=== PATIENT | male | born 1945 | race Caucasian/White ===

== ENCOUNTER 2017-11-23 15:03 | Emergency (ER) | payer MEDICARE ==
--- NOTE | 2017-11-23 16:11 | ER Document Report ---
ED Medical Screen (RME) - General Chief Complaint: Knee Pain Stated Complaint: LEFT FOOT PAIN Time Seen by Provider: 11/23/17 16:05 Mode of Arrival: Medic Information source: Patient, Relative Notes: This 72-year-old male patient with a history of hypertension, hyperlipidemia, diabetes and gout. He is on allopurinol for his gout, and takes metformin, metoprolol and pravastatin. He began having pain to the left lateral knee around Yariel time, continued to walk on it and changed how he walks to compensate for the discomfort. He subsequently developed a little pulling discomfort in his right anterior thigh, and is developed pain in both feet. He notices the pain in the feet primarily getting in and out of a car. Brief exam shows he is exquisitely tender over the fibular head and the ligaments around it and around the lateral knee. There is no effusion, there is no tenderness to palpate the joint space from the anterior lateral and medial approach. There is severe pain trying to extend the knee, but the pain is located on the external lateral aspect of the joint around the fibular head. There is no tenderness to palpate the MTP joints, the ankles, or the bones of the feet. I have greeted and performed a rapid initial assessment of this patient. A comprehensive ED assessment and evaluation of the patient, analysis of test results and completion of the medical decision making process will be conducted by additional ED providers. TRAVEL OUTSIDE OF THE [place] IN LAST 30 DAYS: No - Related Data Allergies/Adverse Reactions: No Known Allergies Allergy (Verified 08/23/12 11:45) Past Medical History - Past Medical History Cardiac Medical History: Reports: Hx Hypertension Denies: Hx Coronary Artery Disease, Hx Heart Attack Pulmonary Medical History: Denies: Hx Asthma, Hx Bronchitis, Hx COPD, Hx Pneumonia Neurological Medical History: Denies: Hx Cerebrovascular Accident, Hx Seizures Musculoskeltal Medical History: Denies Hx Arthritis Past Surgical History: Denies: Hx Pacemaker - Immunizations Hx Diphtheria, Pertussis, Tetanus Vaccination: Yes - pt states 8 years ago
[2017-11-23 16:27] LABS: ABSOLUTE BASOPHILS # (AUTO) 0.1 10^3/uL (0.0-0.2); ABSOLUTE LYMPHOCYTES (AUTO) 3.2 10^3/uL (0.5-4.7); ABSOLUTE MONOCYTES (AUTO) 1.6 10^3/uL (0.1-1.4); ABSOLUTE NEUT (AUTO) 9.9 10^3/uL (1.7-8.2); BASOPHILS % (AUTO) 0.4 % (0-2); EOSINOPHILS % (AUTO) 0.2 % (0-6); HEMATOCRIT 41.3 % (37.9-51.0); HEMOGLOBIN 14.2 g/dL (13.5-17.0); LYMPHOCYTES % (AUTO) 21.7 % (13-45); MEAN CORPUSCULAR HEMOGLOBIN 32.6 pg (27.0-33.4); MEAN CORPUSCULAR HGB CONC 34.4 g/dL (32.0-36.0); MEAN CORPUSCULAR VOLUME 95 fl (80-97); MONOCYTES % (AUTO) 10.5 % (3-13); PLATELET COUNT 280 10^3/uL (150-450); RED BLOOD COUNT 4.37 10^6/uL (4.35-5.55); RED CELL DISTRIBUTION WIDTH 13.8 % (11.5-14.0); SEGMENTED NEUTROPHILS % (AUTO) 67.2 % (42-78); TOTAL CELLS COUNTED % (AUTO) 100 %; WHITE BLOOD COUNT 14.8 10^3/uL (4.0-10.5)
[2017-11-23 16:43] LABS: ALANINE AMINOTRANSFERASE 20 U/L (21-72); ALBUMIN 4.5 g/dL (3.5-5.0); ALKALINE PHOSPHATASE 63 U/L (38-126); ANION GAP 14 (5-19); ASPARTATE AMINO TRANSFERASE 21 U/L (17-59); BILIRUBIN,DIRECT 0.3 mg/dL (0.0-0.4); BILIRUBIN,TOTAL 0.6 mg/dL (0.2-1.3); BLOOD UREA NITROGEN 31 mg/dL (7-20); CALCIUM 10.3 mg/dL (8.4-10.2); CARBON DIOXIDE 25 mmol/L (22-30); CHLORIDE 99 mmol/L (98-107); GLUCOSE 173 mg/dL (75-110); POTASSIUM 5.4 mmol/L (3.6-5.0); SODIUM 137.7 mmol/L (137-145); TOTAL PROTEIN 7.6 g/dL (6.3-8.2)
--- NOTE | 2017-11-23 17:16 | RADIOLOGY REPORT (SQ) ---
EXAM DESCRIPTION: KNEE LEFT 4 VIEW COMPLETED DATE/TIME: 11/23/2017 4:36 pm REASON FOR STUDY: Left lateral knee pain COMPARISON: None. NUMBER OF VIEWS: Four views. TECHNIQUE: AP, lateral, and both oblique radiographic images acquired of the left knee. LIMITATIONS: None. FINDINGS: MINERALIZATION: Normal. BONES: No acute fracture or dislocation. No worrisome bone lesions. JOINT: There is some minimal soft tissue fullness at the level of the suprapatellar pouch which I can not exclude is small joint effusion. SOFT TISSUES: No soft tissue swelling. No radio-opaque foreign body. OTHER: Minimal patellar spurring is identified. IMPRESSION: No acute fracture dislocation. Other findings as noted above TECHNICAL DOCUMENTATION: JOB ID: [id number] [employer]- All Rights Reserved
[2017-11-23 17:17] LABS: ERYTHROCYTE SEDIMENTATION RATE 58 mm/hr (0-20)
[2017-11-23] MEDS ORDERED: NORMAL SALINE 1000 ML 1,000 ML IV ONE (17:22)
[2017-11-23] MEDS ORDERED: ACETAMINOPHEN WITH CODEINE #3 TABLET PO ONE (17:43)
[2017-11-23] MEDS ORDERED: PREDNISONE 20 MG TABLET PO ONE (17:43)
--- NOTE | 2017-11-23 17:57 | ER Document Report ---
ED Extremity Problem, Lower - General Chief Complaint: Knee Pain Stated Complaint: LEFT FOOT PAIN Time Seen by Provider: 11/23/17 16:05 Mode of Arrival: Medic Notes: The patient is a 72-year-old male, past medical history gout, presents with 3 days of worsening left knee pain that feels similar to his prior episodes of gout. He is taking Motrin every 6 hours without much relief of his symptoms. He is also on allopurinol daily to help prevent gout. He had red meat over the past few days. Patient denies fevers, difficulty walking, other joint swelling , redness, injury, numbness, tingling, chest pain or shortness of breath. TRAVEL OUTSIDE OF THE [place] IN LAST 30 DAYS: No - Related Data Allergies/Adverse Reactions: No Known Allergies Allergy (Verified 08/23/12 11:45) Past Medical History - General Information source: Patient, Relative - Social History Smoking Status: Former Smoker Chew tobacco use (# tins/day): No Frequency of alcohol use: None Drug Abuse: None Family History: Reviewed & Not Pertinent Patient has suicidal ideation: No Patient has homicidal ideation: No - Past Medical History Cardiac Medical History: Reports: Hx Hypertension Denies: Hx Coronary Artery Disease, Hx Heart Attack Pulmonary Medical History: Denies: Hx Asthma, Hx Bronchitis, Hx COPD, Hx Pneumonia Neurological Medical History: Denies: Hx Cerebrovascular Accident, Hx Seizures Renal/ Medical History: Denies: Hx Peritoneal Dialysis Musculoskeltal Medical History: Denies Hx Arthritis Past Surgical History: Denies: Hx Pacemaker - Immunizations Hx Diphtheria, Pertussis, Tetanus Vaccination: Yes - pt states 8 years ago Review of Systems - Review of Systems Notes: REVIEW OF SYSTEMS: CONSTITUTIONAL: -fevers, -chills EENT: -eye pain, -difficulty swallowing, -nasal congestion CARDIOVASCULAR:-chest pain, -syncope. RESPIRATORY: -cough, -SOB GASTROINTESTINAL: -abdominal pain, - nausea, -vomiting, -diarrhea GENITOURINARY: -dysuria, -hematuria MUSCULOSKELETAL: +left knee pain, -back pain, -neck pain SKIN: -rash or skin lesions. HEMATOLOGIC: -easy bruising or bleeding. LYMPHATIC: -swollen, enlarged glands. NEUROLOGICAL: -altered mental status or loss of consciousness, -headache, - neurologic symptoms PSYCHIATRIC: -anxiety, -depression. ALL OTHER SYSTEMS REVIEWED AND NEGATIVE. Physical Exam - Vital signs Vitals: Temp Pulse Resp BP Pulse Ox 97.5 F 122 H 18 122/53 L 98 11/23/17 15:22 11/23/17 15:22 11/23/17 15:22 11/23/17 15:22 11/23/17 15:22 - Notes Notes: PHYSICAL EXAMINATION: GENERAL: Well-appearing, well-nourished and in no acute distress. HEAD: Atraumatic, normocephalic. EYES: Pupils equal round and reactive to light, extraocular movements intact, sclera anicteric, conjunctiva are normal. ENT: nares patent, oropharynx clear without exudates. Moist mucous membranes. NECK: Normal range of motion, supple without lymphadenopathy LUNGS: Breath sounds clear to auscultation bilaterally and equal. No wheezes rales or rhonchi. HEART: Tachycardia. ABDOMEN: Soft, nontender, normoactive bowel sounds. No guarding, no rebound. No masses appreciated. EXTREMITIES: Mild swelling and tenderness over lateral knee. No erythema or warmth. Able to fully flex and extend left knee, but is having some pain. NEUROLOGICAL: Cranial nerves grossly intact. Normal speech, normal gait. Normal sensory and motor exams. PSYCH: Normal mood, normal affect. SKIN: Warm, Dry, normal turgor, no rashes or lesions noted. Course - Re-evaluation Re-evalutation: Patient with mild swelling and pain of his left knee over the past 4 days. It is not red and he does not have fevers. He does have a leukocytosis and elevated inflammatory markers, but no clinical evidence of septic joint at this time without warmth or erythema. Blood work also shows a mild increase in his creatinine, which may be related to his NSAID use over the past few days. Provided 1 L of IV fluids and instructed him to not use any more anti- inflammatories. Patient also provided a dose of prednisone, Tylenol #3's and an RORY wrap with instructions to follow with his primary care physician to have his creatinine rechecked and orthopedic surgeon if his pain does not improve. Patient given very strict return precautions, especially about septic joint, and he understands. Family is at bedside and answered all questions. 11/23/17 21:34 Looking through his chart at vital signs that were placed after patient was discharged, patient was found to be febrile and tachycardic on discharge. I was not notified of the abnormal vitals prior to discharge. Called patient at number provided, but no answer and voicemail was not set up. Called son, who is also in the ER with the patient and left a message. He called back about 5 minutes later. Talked to him about concern for the possibility of a septic joint due to the fever when he was discharged, tachycardia, leukocytosis and instructed him to return to the ER as soon as he can for an arthrocentesis. He said he will try to bring the patient back tonight. He did say that his father is thick-headed and may not want to return tonight. Once again, I expressed my concern for septic joint and he says he will try to return tonight. - Vital Signs Vital signs: Temp Pulse Resp BP Pulse Ox 101.0 F H 119 H 18 111/73 93 11/23/17 18:44 11/23/17 18:44 11/23/17 18:44 11/23/17 18:44 11/23/17 18:44 - Laboratory Result Diagrams: 11/23/17 16:10 11/23/17 16:10 Laboratory results interpreted by me: 11/23/17 11/23/17 16:10 16:10 WBC 14.8 H Absolute Neutrophils 9.9 H Absolute Monocytes 1.6 H ESR 58 H Potassium 5.4 H BUN 31 H Creatinine 1.63 H Est GFR ( Amer) 50 L Est GFR (Non-Af Amer) 42 L Glucose 173 H Calcium 10.3 H ALT 20 L - Diagnostic Test Radiology reviewed: Image reviewed, Reports reviewed Radiology results interpreted by me: Left knee x-ray: There is some minimal soft tissue fullness at the level of the suprapatellar pouch which I cannot exclude is small joint effusion. No fractures. Discharge - Discharge Clinical Impression: Elevated serum creatinine Left knee pain Qualifiers: Chronicity: acute Qualified Code(s): M25.562 - Pain in left knee Condition: Stable Disposition: HOME, SELF-CARE Additional Instructions: Drink plenty of water and do not take any anti-inflammatories due to the increase in the blood test looking at your kidneys. Your creatinine is 1.6 today , so follow-up with your primary care physician next week to have this rechecked. Take the full course of steroids and Tylenol #3 for any severe pain. Use the Rory wrap to help with any swelling. If you notice any redness, fevers or any other concerns, return immediately to the emergency room. Follow- up with your orthopedic surgery this week for recheck of your symptoms. Gout You have been diagnosed as having gout. Gout is a problem caused by an excess of uric acid, a natural chemical found in the body. The cause of this disease is unknown. Gout arthritis occurs when crystals of uric acid form in the joints. The big toe is the most common joint involved, but any joint can become affected. Persons with gout may also form uric acid kidney stones, resulting in flank pain and blood in the urine. Nodules of uric acid may form under the skin. The first step of treatment is to decrease the inflammation in the joint with antiinflammatory medication. Medication to lower the uric acid level in the blood may then be prescribed. This medication should be taken regularly, as any sudden change in dosage may provoke an attack of gout. Some foods, such as red meat, can provoke an attack in some gout sufferers. Call the doctor if new symptoms arise, or if you do not improve. Gout Diet Changing your diet can decrease the uric acid in your blood. High levels of uric acid cause gouty arthritis and uric acid kidney stones. If you have gout , you should avoid meats that are high in purine. Meat products to avoid include liver, kidneys, and brains. In general, poultry is better than red meats. Seafoods to avoid include anchovies, sardines, león, mackerel, and scallops. In addition to limiting purine-rich foods, people with gout should limit protein intake to 10-15% of total calories. Carbohydrate intake should be around 50% of total daily calories. Limit fat intake to 30% of total daily calories. Cholesterol intake should be less than 300 mg/day. Maintain or achieve a healthy body weight. Weight loss should be gradual. Rapid weight loss can actually increase uric acid levels temporarily. Alcohol, especially beer, should be avoided. Get plenty of fluids. This dilutes urinary uric acid, and helps prevent uric acid kidney stones. Drink eight to twelve cups of water daily. Prescriptions: Acetaminophen with Codeine [Tylenol #3 Tablet] 1 each PO Q4HP PRN #14 tablet PRN Reason: Prednisone [Deltasone 20 mg Tablet] 3 tab PO DAILY 4 Days tablet Referrals: SUZETTE MACIEL MD [ACTIVE STAFF] - Follow up as needed
[2017-11-23 18:48] VITALS: BP 111/73
== END 2017-11-23 19:40 | disposition home or self-care (01) ==
LOC: ER 15:03
PROC: 0S9D3ZZ Drainage of Left Knee Joint, Percutaneous Approach (ICD-10-PCS; principal; 2017-11-23)
DX: M25.562 Pain in left knee (principal); M79.672 Pain in left foot; M10.9 Gout, unspecified; Z87.891 Personal history of nicotine dependence; D72.829 Elevated white blood cell count, unspecified
CPT/HCPCS: 99283; 99284; 96360; 36415; 87205; 87070; 85025; 85652; 89050; 89060; 87075; 80053; 73562; 20610; A9270 ×2; J7030; J7512

== ENCOUNTER 2017-11-23 22:37 | Emergency (ER) | payer MEDICARE ==
[2017-11-23] MEDS ORDERED: LIDOCAINE 1%/EPINEPHRINE INJ 20 ML VIAL INJ ONE (22:41)
--- NOTE | 2017-11-23 22:46 | ER Document Report ---
ED Extremity Problem, Lower - General Chief Complaint: Knee Pain Stated Complaint: ER CALLED PT TO COME BACK IN .DR JIMENEZ Time Seen by Provider: 11/23/17 22:40 Notes: 72-year-old male, past medical history gout, presents with 3 days of left knee pain. He was seen earlier today by myself and when discharge, he had a fever. I called the patient and told to come back for reassessment and arthrocentesis for concern about septic joint. TRAVEL OUTSIDE OF THE [place] IN LAST 30 DAYS: No - Related Data Allergies/Adverse Reactions: No Known Allergies Allergy (Verified 11/23/17 22:38) Past Medical History - General Information source: Patient - Social History Smoking Status: Unknown if Ever Smoked Family History: Reviewed & Not Pertinent Patient has suicidal ideation: No Patient has homicidal ideation: No - Past Medical History Cardiac Medical History: Reports: Hx Hypertension Denies: Hx Coronary Artery Disease, Hx Heart Attack Pulmonary Medical History: Denies: Hx Asthma, Hx Bronchitis, Hx COPD, Hx Pneumonia Neurological Medical History: Denies: Hx Cerebrovascular Accident, Hx Seizures Renal/ Medical History: Denies: Hx Peritoneal Dialysis Musculoskeltal Medical History: Denies Hx Arthritis Past Surgical History: Denies: Hx Pacemaker - Immunizations Hx Diphtheria, Pertussis, Tetanus Vaccination: Yes - pt states 8 years ago Review of Systems - Review of Systems Notes: REVIEW OF SYSTEMS: CONSTITUTIONAL: +fevers, -chills EENT: -eye pain, -difficulty swallowing, -nasal congestion CARDIOVASCULAR:-chest pain, -syncope. RESPIRATORY: -cough, -SOB GASTROINTESTINAL: -abdominal pain, - nausea, -vomiting, -diarrhea GENITOURINARY: -dysuria, -hematuria MUSCULOSKELETAL: +left knee pain, -back pain, -neck pain SKIN: -rash or skin lesions. HEMATOLOGIC: -easy bruising or bleeding. LYMPHATIC: -swollen, enlarged glands. NEUROLOGICAL: -altered mental status or loss of consciousness, -headache, - neurologic symptoms PSYCHIATRIC: -anxiety, -depression. ALL OTHER SYSTEMS REVIEWED AND NEGATIVE. Physical Exam - Vital signs Vitals: Temp Pulse Resp BP Pulse Ox 98.0 F 86 20 104/42 L 96 11/23/17 22:51 11/23/17 22:51 11/23/17 22:51 11/23/17 22:51 11/23/17 22:51 - Notes Notes: PHYSICAL EXAMINATION: GENERAL: Well-appearing, well-nourished and in no acute distress. HEAD: Atraumatic, normocephalic. EYES: Pupils equal round and reactive to light, extraocular movements intact, sclera anicteric, conjunctiva are normal. ENT: nares patent, oropharynx clear without exudates. Moist mucous membranes. NECK: Normal range of motion, supple without lymphadenopathy LUNGS: Breath sounds clear to auscultation bilaterally and equal. No wheezes rales or rhonchi. HEART: Regular rate and rhythm without murmurs ABDOMEN: Soft, nontender, normoactive bowel sounds. No guarding, no rebound. No masses appreciated. EXTREMITIES: Mild swelling of left knee, no erythema or warmth. Mild painful ROM. NEUROLOGICAL: Cranial nerves grossly intact. Normal speech, normal gait. Normal sensory and motor exams. PSYCH: Normal mood, normal affect. SKIN: Warm, Dry, normal turgor, no rashes or lesions noted. Course - Re-evaluation Re-evalutation: Please do not bill the patient for this visit as it was from an oversight during an earlier visit today. Patient called to return due to fever on discharge at last visit. No fever and he is not tachycardic anymore on repeat visit. Arthrocentesis of his left knee was performed with yellow fluid. Cell count showed a WBC of 15,000 and RBCs of 980, this is most consistent with an inflammatory arthritis and less likely a septic joint. He appears well. Instructed him to continue the prednisone due to inability to take anti-inflammatories with the slight increase in creatinine earlier today, Tylenol #3 for pain control and continue to drink plenty of fluids. He will f/u with Dr. Maciel this week for a recheck of his symptoms. Once again, gave him strict return precautions about septic joint and he understands. - Vital Signs Vital signs: Temp Pulse Resp BP Pulse Ox 98.0 F 86 20 104/42 L 96 11/23/17 22:51 11/23/17 22:51 11/23/17 22:51 11/23/17 22:51 11/23/17 22:51 Procedures - Joint Aspiration Left Knee Time completed: 23:11 Consent obtained: Yes Joint aspiration pre-procedure: Sterile PPE donned, Chloraprep applied, Sterile drapes applied Anesthetic type: 1% Lidocaine w/epi mL's of anesthetic: 10 Needle size: 18 Amount/type of drainage: Thick yellow drainage Number of attempts: 1 Complications: No Discharge - Discharge Clinical Impression: Left knee pain Qualifiers: Chronicity: acute Qualified Code(s): M25.562 - Pain in left knee Condition: Stable Disposition: HOME, SELF-CARE Additional Instructions: Your knee aspiration does not show any evidence of infection in the joint. As we discussed earlier, continue pain control with steroids and Tylenol with codeine and Rory wrap. Follow-up with the orthopedic surgeon this week for a recheck of your symptoms. Referrals: SUZETTE MACIEL MD [ACTIVE STAFF] - Follow up as needed
[2017-11-23] MEDS ORDERED: LIDOCAINE 2%/EPINEPHRINE INJ 20 ML VIAL INJ ONE (23:37)
[2017-11-23 23:55] LABS: MONOSODIUM URATE CRYSTALS EXTRACELLULAR
[2017-11-23 23:56] LABS: CALCIUM PYROPHOSPHATE CRYSTALS NONE OBSERVED
[2017-11-23 23:57] LABS: OTHER CRYSTALS NONE OBSERVED
[2017-11-24 00:23] LABS: FLUID COLOR YELLOW; FLUID SOURCE KNEE; FLUID TYPE SYNOVIAL
[2017-11-24 00:24] LABS: FLUID APPEARANCE TURBID; FLUID VISCOSITY MODERATELY VISCOUS
[2017-11-24 01:13] VITALS: BP 110/59
== END 2017-11-24 01:00 | disposition home or self-care (01) ==
LOC: ER 22:37
PROC: 0S9D3ZZ Drainage of Left Knee Joint, Percutaneous Approach (ICD-10-PCS; principal; 2017-11-23)
DX: M25.562 Pain in left knee (principal); R50.9 Fever, unspecified
CPT/HCPCS: 87070; 87075; 87205; 89050; 89060; 99283

== ENCOUNTER → 2018-07-25 | Outpatient (CLI) | payer MEDICARE ==
[2018-07-25 10:10] LABS: ABSOLUTE BASOPHILS # (AUTO) 0.1 10^3/uL (0.0-0.2); ABSOLUTE EOSINOPHILS # (AUTO) 0.1 10^3/uL (0.0-0.6); ABSOLUTE LYMPHOCYTES (AUTO) 3.3 10^3/uL (0.5-4.7); ABSOLUTE MONOCYTES (AUTO) 0.8 10^3/uL (0.1-1.4); ABSOLUTE NEUT (AUTO) 4.5 10^3/uL (1.7-8.2); BASOPHILS % (AUTO) 0.6 % (0-2); EOSINOPHILS % (AUTO) 1.4 % (0-6); HEMATOCRIT 41.2 % (37.9-51.0); HEMOGLOBIN 14.4 g/dL (13.5-17.0); LYMPHOCYTES % (AUTO) 37.1 % (13-45); MEAN CORPUSCULAR HEMOGLOBIN 32.7 pg (27.0-33.4); MEAN CORPUSCULAR VOLUME 94 fl (80-97); MONOCYTES % (AUTO) 9.6 % (3-13); PLATELET COUNT 256 10^3/uL (150-450); RED BLOOD COUNT 4.41 10^6/uL (4.35-5.55); RED CELL DISTRIBUTION WIDTH 14.5 % (11.5-14.0); SEGMENTED NEUTROPHILS % (AUTO) 51.3 % (42-78); TOTAL CELLS COUNTED % (AUTO) 100 %; WHITE BLOOD COUNT 8.8 10^3/uL (4.0-10.5)
[2018-07-25 10:47] LABS: ALANINE AMINOTRANSFERASE 19 U/L (21-72); ALBUMIN 4.6 g/dL (3.5-5.0); ALKALINE PHOSPHATASE 51 U/L (38-126); ANION GAP 16 (5-19); ASPARTATE AMINO TRANSFERASE 26 U/L (17-59); BILIRUBIN,DIRECT 0.4 mg/dL (0.0-0.4); BILIRUBIN,TOTAL 0.7 mg/dL (0.2-1.3); BLOOD UREA NITROGEN 25 mg/dL (7-20); CALCIUM 9.9 mg/dL (8.4-10.2); CARBON DIOXIDE 24 mmol/L (22-30); CHLORIDE 101 mmol/L (98-107); CHOLESTEROL 177.25 mg/dL (0-200); GLUCOSE 129 mg/dL (75-110); POTASSIUM 4.6 mmol/L (3.6-5.0); SODIUM 140.5 mmol/L (137-145); TOTAL PROTEIN 8.1 g/dL (6.3-8.2); TRIGLYCERIDES 211 mg/dL (<150); URIC ACID 8.1 mg/dL (3.5-8.5)
[2018-07-25 10:58] LABS: DIRECT LDL 118 mg/dL (<100)
[2018-07-25 11:04] LABS: VLDL CHOLESTEROL 42.2 mg/dL (10-31)
== END ==
LOC: OD 09:09
PROVIDERS: ATTEND Internal Medicine
DX: E11.9 Type 2 diabetes mellitus without complications (principal); I10 Essential (primary) hypertension; E78.00 Pure hypercholesterolemia, unspecified; M10.00 Idiopathic gout, unspecified site; Z79.899 Other long term (current) drug therapy
CPT/HCPCS: 36415; 80053; 80061; 84550; 85025

== ENCOUNTER → 2019-10-07 | Outpatient (CLI) | payer MEDICARE ==
[2019-10-07 11:35] LABS: ABSOLUTE LYMPHOCYTES (AUTO) 3.2 10^3/uL (0.5-4.7); ABSOLUTE MONOCYTES (AUTO) 1.1 10^3/uL (0.1-1.4); ABSOLUTE NEUT (AUTO) 6.9 10^3/uL (1.7-8.2); BASOPHILS % (AUTO) 0.4 % (0-2); EOSINOPHILS % (AUTO) 0.3 % (0-6); HEMATOCRIT 43.1 % (37.9-51.0); LYMPHOCYTES % (AUTO) 28.5 % (13-45); MEAN CORPUSCULAR HEMOGLOBIN 33.1 pg (27.0-33.4); MEAN CORPUSCULAR HGB CONC 34.8 g/dL (32.0-36.0); MEAN CORPUSCULAR VOLUME 95 fl (80-97); MONOCYTES % (AUTO) 9.7 % (3-13); PLATELET COUNT 259 10^3/uL (150-450); RED BLOOD COUNT 4.53 10^6/uL (4.35-5.55); SEGMENTED NEUTROPHILS % (AUTO) 61.1 % (42-78); TOTAL CELLS COUNTED % (AUTO) 100 %; WHITE BLOOD COUNT 11.2 10^3/uL (4.0-10.5)
[2019-10-07 11:56] LABS: ALBUMIN 4.7 g/dL (3.5-5.0); ALKALINE PHOSPHATASE 64 U/L (38-126); ANION GAP 13 (5-19); ASPARTATE AMINO TRANSFERASE 32 U/L (17-59); BILIRUBIN,DIRECT 0.2 mg/dL (0.0-0.4); BILIRUBIN,TOTAL 0.7 mg/dL (0.2-1.3); BLOOD UREA NITROGEN 19 mg/dL (7-20); CALCIUM 10.2 mg/dL (8.4-10.2); CARBON DIOXIDE 28 mmol/L (22-30); CHLORIDE 100 mmol/L (98-107); CHOLESTEROL 240.56 mg/dL (0-200); GLUCOSE 147 mg/dL (75-110); POTASSIUM 4.7 mmol/L (3.6-5.0); TOTAL PROTEIN 8.3 g/dL (6.3-8.2); TRIGLYCERIDES 165 mg/dL (<150)
[2019-10-07 12:07] LABS: DIRECT LDL 177 mg/dL (<100)
== END ==
LOC: OD 10:34
PROVIDERS: ATTEND Internal Medicine
DX: E11.9 Type 2 diabetes mellitus without complications (principal); I10 Essential (primary) hypertension; E78.00 Pure hypercholesterolemia, unspecified; M10.9 Gout, unspecified; Z79.899 Other long term (current) drug therapy
CPT/HCPCS: 36415; 80053; 80061; 84550; 85025

== ENCOUNTER 2020-02-09 09:01 | Emergency (ER) | payer MEDICARE ==
--- NOTE | 2020-02-09 09:15 | ER Document Report ---
ED Medical Screen (RME) - General Chief Complaint: General Weakness Stated Complaint: WEAKNESS Time Seen by Provider: 02/09/20 09:04 Primary Care Provider: MARCELA SOTO MD [Primary Care Provider] - Follow up as needed Mode of Arrival: Ambulatory Information source: Patient, Relative Notes: 74-year-old male with history of hard of hearing, high blood pressure, hy perlipidemia, diabetes, and rapid heart rate presents to the emergency department with his son for complaints of just not acting quite right since possibly 1600 last night. Son reports patient was at his grand daughter's wedding and seemed off balance confused just not acting right. He reports he did not eat that much and he usually eats a lot. He reports he vomited once yesterday. Reports father fell out of bed last night. Patient reports he fell out of bed when he was awake. Patient is not on anticoagulants. Patient is answering all questions appropriately no obvious neuro deficit. Son reports he is around father all the time and he is just not acting right. I have greeted and performed a rapid initial assessment of this patient. A comprehensive ED assessment and evaluation of the patient, analysis of test results and completion of the medical decision making process will be conducted by additional ED providers. TRAVEL OUTSIDE OF THE [place] IN LAST 30 DAYS: No - Related Data Allergies/Adverse Reactions: No Known Allergies Allergy (Verified 02/09/20 09:05) Past Medical History - Past Medical History Cardiac Medical History: Reports: Hx Hypertension Denies: Hx Coronary Artery Disease, Hx Heart Attack Pulmonary Medical History: Denies: Hx Asthma, Hx Bronchitis, Hx COPD, Hx Pneumonia Neurological Medical History: Denies: Hx Cerebrovascular Accident, Hx Seizures Renal/ Medical History: Denies: Hx Peritoneal Dialysis Musculoskeltal Medical History: Denies Hx Arthritis Past Surgical History: Denies: Hx Pacemaker - Immunizations Hx Diphtheria, Pertussis, Tetanus Vaccination: Yes - pt states 8 years ago Doctor's Discharge - Discharge Referrals: MARCELA SOTO MD [Primary Care Provider] - Follow up as needed
--- NOTE | 2020-02-09 09:45 | RADIOLOGY REPORT (SQ) ---
EXAM DESCRIPTION: CT HEAD WITHOUT COMPLETED DATE/TIME: 02/09/2020 9:25 am REASON FOR STUDY: confusion, off balance, fell out of bed COMPARISON: None. TECHNIQUE: Axial images acquired through the brain without intravenous contrast. Images reviewed wi th bone, brain and subdural windows. Additional sagittal and coronal reconstructions were generated. Images stored on PACS. All CT scanners at this facility use dose modulation, iterative reconstruction, and/or weight based d osing when appropriate to reduce radiation dose to as low as reasonably achievable (ALARA). [facility]: Dose Right [facility]: CareDose [facility]: Dose Right [facility]: Teradose 4D [facility]: Smart Z[place]O RADIATION DOSE: CT Rad equipment meets quality standard of care and radiation dose reduction techniq ues were employed. CTDIvol: 53.2 mGy. DLP: 991 mGy-cm. mGy. LIMITATIONS: None. FINDINGS: VENTRICLES: Prominent. CEREBRUM: No masses. No hemorrhage. No midline shift. Areas of low density in the white matter mos t likely due to chronic micro-vascular ischemic change. No evidence for acute infarction. CEREBELLUM: No masses. No hemorrhage. No alteration of density. No evidence for acute infarction. EXTRAAXIAL SPACES: Mild age-related involutional change. No fluid collections. No masses. ORBITS AND GLOBE: No intra- or extraconal masses. Normal contour of globe without masses. CALVARIUM: No fracture. PARANASAL SINUSES: No fluid or mucosal thickening. SOFT TISSUES: No mass or hematoma. OTHER: No other significant finding. IMPRESSION: MILD CHRONIC CHANGES OF ATROPHY AND MICROVASCULAR ISCHEMIA. NO ACUTE PROCESS. EVIDENCE OF ACUTE STROKE: NO. COMMENT: Pertinent positive or negative findings of the imaging study reported as a CRITICAL EXAM t o the evaluating physician on 02/09/2020.Category of Critical Exam: Stroke code TECHNICAL DOCUMENTATION: JOB ID: [id number] Quality ID # [id number]: Final reports with documentation of one or more dose reduction techniques (e.g., Au tomated exposure control, adjustment of the mA and/or kV according to patient size, use of iterative reconstruction technique) 2010 [employer]- All Rights Reserved Reading location - IP/workstation name: [email or web address]
--- NOTE | 2020-02-09 09:46 | RADIOLOGY REPORT (SQ) ---
EXAM DESCRIPTION: CHEST SINGLE VIEW COMPLETED DATE/TIME: 02/09/2020 9:24 am REASON FOR STUDY: confusion, off balance, fell out of bed COMPARISON: None. EXAM PARAMETERS: NUMBER OF VIEWS: One view. TECHNIQUE: Single frontal radiographic view of the chest acquired. RADIATION DOSE: NA LIMITATIONS: None. FINDINGS: LUNGS AND PLEURA: No opacities, masses or pneumothorax. No pleural effusion. MEDIASTINUM AND HILAR STRUCTURES: No masses. Contour normal. HEART AND VASCULAR STRUCTURES: Heart normal in size. Normal vasculature. BONES: No acute findings. HARDWARE: None in the chest. OTHER: No other significant finding. IMPRESSION: No evidence of displaced rib fracture or pneumothorax. TECHNICAL DOCUMENTATION: JOB ID: [id number] 2010 [employer]- All Rights Reserved Reading location - IP/workstation name: [email or web address]
[2020-02-09 09:54] LABS: ABSOLUTE MONOCYTES (AUTO) 1.5 10^3/uL (0.1-1.4); ABSOLUTE NEUT (AUTO) 7.7 10^3/uL (1.7-8.2); BASOPHILS % (AUTO) 0.4 % (0-2); HEMATOCRIT 40.8 % (37.9-51.0); HEMOGLOBIN 14.2 g/dL (13.5-17.0); LYMPHOCYTES % (AUTO) 18.1 % (13-45); MEAN CORPUSCULAR HEMOGLOBIN 32.6 pg (27.0-33.4); MEAN CORPUSCULAR HGB CONC 34.8 g/dL (32.0-36.0); MEAN CORPUSCULAR VOLUME 94 fl (80-97); MONOCYTES % (AUTO) 13.1 % (3-13); PLATELET COUNT 182 10^3/uL (150-450); RED BLOOD COUNT 4.35 10^6/uL (4.35-5.55); RED CELL DISTRIBUTION WIDTH 14.1 % (11.5-14.0); SEGMENTED NEUTROPHILS % (AUTO) 68.4 % (42-78); TOTAL CELLS COUNTED % (AUTO) 100 %; WHITE BLOOD COUNT 11.3 10^3/uL (4.0-10.5)
[2020-02-09 09:55] LABS: INTERNATIONAL RATION (INR) 1.08
[2020-02-09 09:56] LABS: PARTIAL THROMBOPLASTIN TIME 26.7 SEC (23.5-35.8)
[2020-02-09 10:18] LABS: ALBUMIN 4.4 g/dL (3.5-5.0); ALKALINE PHOSPHATASE 49 U/L (38-126); ANION GAP 12 (5-19); ASPARTATE AMINO TRANSFERASE 35 U/L (17-59); BILIRUBIN,DIRECT 0.3 mg/dL (0.0-0.4); BLOOD UREA NITROGEN 23 mg/dL (7-20); CALCIUM 9.4 mg/dL (8.4-10.2); CARBON DIOXIDE 26 mmol/L (22-30); CHLORIDE 96 mmol/L (98-107); CREATINE KINASE 299 U/L (55-170); GLUCOSE 213 mg/dL (75-110); POTASSIUM 4.2 mmol/L (3.6-5.0); TOTAL PROTEIN 7.8 g/dL (6.3-8.2)
[2020-02-09 10:30] LABS: CREATINE KINASE MB 1.44 ng/mL (<4.55)
[2020-02-09 10:32] LABS: TROPONIN I < 0.012 ng/mL
[2020-02-09] MEDS ORDERED: METOPROLOL TARTRATE PF/INJ 5 MG/5 ML SDV IV ONE (11:05)
[2020-02-09 11:09] LABS: A TYPE INFLUENZA AG NEGATIVE (NEGATIVE); B INFLUENZA AG NEGATIVE (NEGATIVE)
--- NOTE | 2020-02-09 12:51 | RADIOLOGY REPORT (SQ) ---
EXAM DESCRIPTION: MRI HEAD WITHOUT COMPLETED DATE/TIME: 02/09/2020 12:23 pm REASON FOR STUDY: gait abnormal/fall/arrythmia COMPARISON: Noncontrast head CT 02/09/2020 TECHNIQUE: Multiplanar imaging includes non-contrasted T1, T2, FLAIR, and Diffusion with ADC map seq uences. Images stored on PACS. LIMITATIONS: None. FINDINGS: ANATOMY: No anomalies. Normal vascular flow voids. Pituitary fossa normal. CSF SPACES: Mild prominence of the lateral ventricles and extra-axial spaces on the basis of involuti onal change. CEREBRUM: A few high-signal intensity lesions scattered throughout the white matter on FLAIR imaging with distribution suggesting chronic micro-vascular ischemic change. Sulci and gyri normal in size a nd contour. No evidence of hemorrhage, mass or extraaxial fluid collection. POSTERIOR FOSSA: No signal alteration. No hemorrhage. No edema, masses or mass effect. Internal grecia tory canals, cerebello-pontine angles, mastoids normal. DIFFUSION: Negative for acute or sub-acute infarction. ORBITS: No masses. Globes normal. PARANASAL SINUSES: Trace mucosal thickening within the left maxillary sinus. OTHER: No other significant finding. IMPRESSION: No evidence of acute or subacute ischemic injury. Background of mild chronic microvascu lar ischemic and age-related involutional changes. EVIDENCE OF ACUTE STROKE: NO. TECHNICAL DOCUMENTATION: JOB ID: [id number] 2010 [employer]- All Rights Reserved Reading location - IP/workstation name: [email or web address]
--- NOTE | 2020-02-09 12:53 | RADIOLOGY REPORT (SQ) ---
EXAM DESCRIPTION: MRA HEAD WITHOUT COMPLETED DATE/TIME: 02/09/2020 12:23 pm REASON FOR STUDY: abnormal gait/fall/arrythmia COMPARISON: 02/09/2020 TECHNIQUE: Axial 3-D [id number] acquisition imaging performed through the brain in the area of t he [place]. Images reformatted using 3-D MIPS. LIMITATIONS: None. FINDINGS: SOURCE IMAGES: No unexpected findings on source images. No large masses. 3-D MIP: No aneurysm. No occlusions. No significant stenosis. OTHER: No other significant finding. IMPRESSION: NORMAL MRA OF THE [place]. TECHNICAL DOCUMENTATION: JOB ID: [id number] 2010 [employer]- All Rights Reserved Reading location - IP/workstation name: [email or web address]
--- NOTE | 2020-02-09 12:58 | RADIOLOGY REPORT (SQ) ---
EXAM DESCRIPTION: MRA NECK WITHOUT COMPLETED DATE/TIME: 02/09/2020 12:23 pm REASON FOR STUDY: abnormal gait/fall/arrythmia COMPARISON: 02/09/2020 TECHNIQUE: Axial 2-D volume acquisition imaging through the extracranial carotid and vertebral arter ies with reformatting using 3-D MIPS. LIMITATIONS: None. FINDINGS: RIGHT CAROTID ARTERY: No stenosis or occlusive changes. Limited visualization of the orig in. LEFT CAROTID ARTERY: No stenosis or occlusive changes. Limited visualization of the origin. VERTEBRAL ARTERY: The right vertebral artery appears uniformly diminutive throughout its course. The extracranial portions of the vertebral basilar system are preserved without focal stenosis. No aneur ysmal dilatation or dissection is seen. OTHER: No other significant finding. IMPRESSION: NO SIGNIFICANT STENOSIS. COMMENT: Quality ID #[id number]: Measurements of distal internal carotid diameter were used as the denomin ator for stenosis measurement. TECHNICAL DOCUMENTATION: JOB ID: [id number] 2010 [employer]- All Rights Reserved Reading location - IP/workstation name: [email or web address]
[2020-02-09] MEDS ORDERED: HYDROCHLOROTHIAZIDE 12.5 MG TABLET PO ONE (13:16)
[2020-02-09] MEDS ORDERED: LISINOPRIL 10 MG TABLET PO ONE (13:17)
[2020-02-09] MEDS ORDERED: METOPROLOL SUCCINATE 50 MG TAB.SR.24H PO ONE (13:17)
[2020-02-09] MEDS ORDERED: METOPROLOL TARTRATE 50 MG TABLET PO ONE (13:18)
[2020-02-09 15:27] VITALS: BP 98/64
--- NOTE | 2020-02-09 16:36 | ER Document Report ---
Entered by CHARLI MATHUR SCRIBE 02/09/20 1009 Acting as scribe for:ANAYA DAVE MD ED General - General Chief Complaint: General Weakness Stated Complaint: WEAKNESS Time Seen by Provider: 02/09/20 09:04 Primary Care Provider: MARCELA SOTO MD [Primary Care Provider] - Follow up as needed Mode of Arrival: Ambulatory Information source: Patient, Relative Notes: This 74 year old male patient presents to the emergency department today with complaints of weakness. Patient's son is at bedside and states the patient was acting differently at his daughter's wedding yesterday. Son states the patient was taking short steps and did not have a appetite. Son states the patient vomited last night and fell out of bed. Patient states he had a normal appetite this morning and denies any fever, chills, cough, or headache. Patient states he has a history of hypertension, atrial fibrillation, and last took his medicine x2 days ago. TRAVEL OUTSIDE OF THE [place] IN LAST 30 DAYS: No - Related Data Allergies/Adverse Reactions: No Known Allergies Allergy (Verified 02/09/20 09:05) Past Medical History - General Information source: Patient, Relative - Social History Smoking Status: Never Smoker Cigarette use (# per day): No Chew tobacco use (# tins/day): No Frequency of alcohol use: None Drug Abuse: None Family History: Reviewed & Not Pertinent Patient has suicidal ideation: No Patient has homicidal ideation: No - Past Medical History Cardiac Medical History: Reports: Hx Atrial Fibrillation, Hx Hypertension - Immunizations Hx Diphtheria, Pertussis, Tetanus Vaccination: Yes - pt states 8 years ago Review of Systems - Review of Systems Constitutional: See HPI, Weakness. denies: Chills, Fever EENT: No symptoms reported Cardiovascular: No symptoms reported Respiratory: See HPI. denies: Cough Gastrointestinal: See HPI, Vomiting, Poor appetite Genitourinary: No symptoms reported Male Genitourinary: No symptoms reported Musculoskeletal: No symptoms reported Skin: No symptoms reported Hematologic/Lymphatic: No symptoms reported Neurological/Psychological: See HPI. denies: Headaches -: Yes All other systems reviewed and negative Physical Exam - Vital signs Vitals: Temp Pulse Resp BP Pulse Ox 100.2 F 141 H 18 163/100 H 96 02/09/20 09:05 02/09/20 09:05 02/09/20 09:05 02/09/20 09:05 02/09/20 09:05 - General General appearance: Appears well, Alert - HEENT Head: Normocephalic, Atraumatic Eyes: Normal Pupils: PERRL Pharynx: Normal - Respiratory Respiratory status: No respiratory distress Chest status: Nontender Breath sounds: Normal Chest palpation: Normal - Cardiovascular Rhythm: Regular Heart sounds: Normal auscultation Murmur: No - Abdominal Inspection: Normal Distension: No distension Bowel sounds: Normal Tenderness: Nontender - Extremities General upper extremity: Normal inspection. No: Edema General lower extremity: Normal inspection. No: Edema - Neurological Neuro grossly intact: Yes Cognition: Normal Orientation: AAOx4 [place] Coma Scale Verbal: Oriented [place] Coma Scale Motor: Obeys Commands Speech: Normal Motor strength normal: LUE, RUE, LLE, RLE - Psychological Associated symptoms: Normal affect, Normal mood - Skin Skin Temperature: Warm Skin Moisture: Dry Skin Color: Normal Course - Re-evaluation Re-evalutation: 02/09/20 15:03 Patient resting comfortably showing no signs of distress. 02/09/20 15:12 Patient sinus tachycardia resolved with IV with Lopressor and p.o. metoprolol. Patient is now on a sinus rhythm rate of around 85. Patient is hemodynamically stable. Patient has 2- troponins and has no complaints or signs of cardiovascular compromise at this time. Will advise patient to follow-up with his primary care physician regarding his creatinine 1.28 and his blood sugar 260. - Vital Signs Vital signs: Temp Pulse Resp BP Pulse Ox 100.2 F 132 H 23 H 98/64 L 94 02/09/20 09:05 02/09/20 10:05 02/09/20 15:01 02/09/20 15:01 02/09/20 11:01 - Laboratory Result Diagrams: 02/09/20 09:39 02/09/20 09:39 Laboratory results interpreted by me: 02/09/20 02/09/20 02/09/20 09:39 09:39 09:41 WBC 11.3 H RDW 14.1 H [place] % (Auto) 13.1 H Absolute Monos (auto) 1.5 H Sodium 133.6 L Chloride 96 L BUN 23 H Creatinine 1.28 H Est GFR (MDRD) Non-Af 55 L Glucose 213 H POC Glucose 215 H Creatine Kinase 299 H 02/09/20 15:03 11 blade elevated blood sugar 213 creatinine 1.2. Advised patient to follow-up with his primary care physician regarding elevated blood sugar creatinine of 1.2. - Diagnostic Test Radiology reviewed: Image reviewed, Reports reviewed Radiology results interpreted by me: 02/09/20 15:10 Chest x-ray CT of head chronic changes, atrophy, microvascular ischemic changes. No acute stroke MRI of head chronic micro vascular ischemic changes age-related no acute stroke MRI neck no significant stenosis Brain MRA normal brain normal circular [place] - EKG Interpretation by Me Additional EKG results interpreted by me: 02/09/20 15:11 Twelve-lead EKG today 0 930 time sinus tachycardia rate of 140 multiple atrial premature complexes probable old inferior infarct age indeterminate. Discharge - Discharge Clinical Impression: Sinus tachycardia, Fatigue, Hyperglycemia, Elevated serum creatinine, Dehydration Condition: Stable Disposition: HOME, SELF-CARE Instructions: Beta Blockers ([facility]), Sinus Tachycardia ([facility]) Additional Instructions: Sinus Tachycardia The palpitations (racing heart) you have felt are due to "sinus tachycardia." This is a rapid (but NORMAL) rhythm which can be due to fever, pain, anxiety, lack of sleep, over-exertion, or drugs. Cold medications, caffeine, and diet pills are particularly likely to cause tachycardia. The doctor has found no evidence of heart disease. Occasionally, medication is required for uncomfortable palpitations. Usually, however, all that is required is rest, reassurance, and avoiding caffeine, alcohol, nicotine, and unnecessary medicines. Call the doctor if you develop any new or unusual symptoms, or if the rapid heartbeat does not resolve. Fatigue Fatigue can be caused by many medical and emotional problems. Fatigue can be an early symptom of infection, or can be caused by chronic infection. It can be a symptom of metabolic diseases like diabetes, hypothyroidism, or anemia. It can result from sleep problems such as sleep apnea. Fatigue can be a symptom of depression. Overuse of alcohol or caffeine can cause fatigue. Many drugs can cause fatigue, either as a side effect or when withdrawing from the drug. Until the evaluation is complete, try to keep up your normal activities. Get regular sleep hours, but avoid oversleeping. Try to get regular exercise. Eliminate alcohol, caffeine, and any unnecessary drugs, herbs, or medicines (discuss any changes in prescription medicines with your doctor). Contact the doctor if there is any change for the worse.Hyperglycemia (High Blood Sugar) You have an abnormally high blood sugar. Not all high blood sugar requires long-term treatment. High blood sugar can be due to medications, , or the stress of illness. (These cases are "borderline diabetes.") If the doctor feels your high blood sugar might resolve with time, you may not require treatm ent now. You will be scheduled for further evaluation. It's very important that you follow through, to see if the blood sugar returns to normal levels. Uncontrolled high blood sugar leads to early heart disease, strokes, nerve damage, eye damage, and kidney damage. Call the physician if there is faintness, excess sleepiness, or very rapid breathing.Dehydration Dehydration can result from vomiting or diarrhea, fever, or decreased intake of fluids. If severe, hospitalization and intravenous fluids may be required. Most cases are treated at home with fluids by mouth. For the next 24 hours, drink lots of clear fluids. In mild cases, this can be soda pop or sports drinks. For more severe dehydration, the doctor may recommend special fluids such as Pedialyte or Lytren. Try to get three liters (3 quarts) of fluid per day. If vomiting occurs, continue to drink the fluids frequently (every 15 to 20 minutes), but in small amounts (one or two ounces). Depending on the type of dehydration, the doctor may prescribe antinausea medicine or potassium replacements. Call the doctor or return for re-examination if you become progressively weak, vomit repeatedly, or have other new symptoms. Referrals: MARCELA SOTO MD [Primary Care Provider] - Follow up as needed I personally performed the services described in the documentation, reviewed and edited the documentation which was dictated to the scribe in my presence, and it accurately records my words and actions.
--- NOTE | 2020-02-10 00:43 | EKG REPORT ---
SEVERITY:- ABNORMAL ECG - SINUS TACHYCARDIA MULTIPLE ATRIAL PREMATURE COMPLEXES PROBABLE INFERIOR INFARCT, AGE INDETERMINATE : Confirmed by: Roger Almanzar 10-Feb-2020 00:42:10
== END 2020-02-09 15:26 | disposition home or self-care (01) ==
LOC: ER 09:01
DX: R00.0 Tachycardia, unspecified (principal); R53.1 Weakness; E86.0 Dehydration; E11.65 Type 2 diabetes mellitus with hyperglycemia; R79.89 Other specified abnormal findings of blood chemistry; R53.83 Other fatigue; R11.10 Vomiting, unspecified; W06.XXXA Fall from bed, initial encounter; I48.91 Unspecified atrial fibrillation; I10 Essential (primary) hypertension
CPT/HCPCS: 93005; 99285; 96374; 36415; 87040; 82553; 82962; 82550; 83605; 85025; 85610; 85730; 80053; 84484; 87804; 70551; 70547; 70544; 71045; 70450; 93010; J3490; A9270 ×4